=== PATIENT | male | born 1995 | race Caucasian/White ===

== ENCOUNTER 2022-02-08 00:24 | Emergency (ER) | payer SELFPAY ==
[2022-02-08] MEDS ORDERED: Ketorolac Tromethamine 30 MG/ML VIAL ONE (01:21)
== END 2022-02-08 01:48 | disposition home or self-care (01) ==
LOC: CSHERS 00:24
DX: M54.50 Low back pain, unspecified (principal)
CPT/HCPCS: 96372; 99283; J1885